=== PATIENT | male | born 1990 ===

== ENCOUNTER 2020-01-12 14:09 | Outpatient (CLI) | payer OTHER ==
[~2020-01-12] VITALS: Ht 172.7 cm; Wt 77.1 kg
== END 2020-01-12 15:24 | disposition home or self-care (01) ==
LOC: OFIC 805 14:09
DX: H92.01 Otalgia, right ear (principal); R09.81 Nasal congestion; H91.8X1 Other specified hearing loss, right ear

== ENCOUNTER 2020-07-15 10:57 | Outpatient (CLI) | payer OTHER | END 2020-07-15 16:11 | disposition home or self-care (01) | LOC: OFIC 805 10:57 | PROVIDERS: ATTEND Otolaryngology Otology & Neurotology | DX: J01.80 Other acute sinusitis (principal); R09.81 Nasal congestion; H92.01 Otalgia, right ear ==